=== PATIENT | male | born 1960 | race Caucasian/White ===

== ENCOUNTER 2021-01-06 09:44 | Outpatient (CLI) | payer OTHER | END 2021-01-06 09:45 | disposition home or self-care (01) | LOC: CTENTCT 09:44 | PROVIDERS: ATTEND Student in an Organized Health Care Education/Training Program | DX: J32.8 Other chronic sinusitis (principal) | CPT/HCPCS: 70486 ==

== ENCOUNTER 2022-06-16 08:19 | Day surgery (SDC) | payer OTHER ==
[2022-06-15 14:32] VITALS: BMI 42.0
[2022-06-16] MEDS ORDERED: Oxymetazoline HCl 0.05% (30 ML BOT) ONE ×2 (09:08→10:13)
[2022-06-16] MEDS ORDERED: Lidocaine 1% (PF) 30 ML VIAL ONE (10:13)
[2022-06-16] MEDS ORDERED: Bacitracin Zinc Ointment 30 gm TUBE ONE (10:13)
[2022-06-16] MEDS ORDERED: EPINEPHrine 1 MG/ML AMP ONE (10:13)
[2022-06-16] MEDS ORDERED: fentaNYL 50 mcg/mL 1 mL Vial ONE ×2 (10:18→13:46)
[2022-06-16] MEDS ORDERED: fentaNYL PF 100 MCG/2 ML SYRINGE ONE (10:18)
[2022-06-16] MEDS ORDERED: Ondansetron PF 4 MG/2 ML Vial ONE (10:31)
[2022-06-16] MEDS ORDERED: PHENYLEPHRINE-NS 100 MCG/ML 10 ML SYRINGE ONE (10:31)
[2022-06-16] MEDS ORDERED: ePHEDrine Sulfate 50 MG/10 ML VIAL ONE (10:31)
[2022-06-16] MEDS ORDERED: PROPOFOL 200 MG/20 ML VIAL ONE (10:31)
[2022-06-16] MEDS ORDERED: Lidocaine 1% PF 5 ML VIAL ONE (10:31)
[2022-06-16] MEDS ORDERED: Dexamethasone 20 MG/5 ML VIAL ONE (10:31)
[2022-06-16] MEDS ORDERED: Rocuronium Bromide 10 MG/ML (10ML VIAL) ONE (10:31)
[2022-06-16] MEDS ORDERED: SUGAMMADEX SODIUM 200 MG/2 ML VIAL ONE (11:02)
[2022-06-16] MEDS ORDERED: Phenylephrine 10 MG/ML VIAL ONE (11:02)
== END 2022-06-16 14:58 | disposition home or self-care (01) ==
LOC: SDC 08:19
PROVIDERS: ATTEND Student in an Organized Health Care Education/Training Program
PROC: 09SM0ZZ Reposition Nasal Septum, Open Approach (ICD-10-PCS; principal; 2022-06-16)
PROC: 09QK0ZZ Repair Nasal Mucosa and Soft Tissue, Open Approach (ICD-10-PCS; principal; 2022-06-16)
PROC: 09TL0ZZ Resection of Nasal Turbinate, Open Approach (ICD-10-PCS; principal; 2022-06-16)
DX: J34.2 Deviated nasal septum (principal); J34.3 Hypertrophy of nasal turbinates; M95.0 Acquired deformity of nose; I10 Essential (primary) hypertension; I44.7 Left bundle-branch block, unspecified; J45.909 Unspecified asthma, uncomplicated; N40.0 Benign prostatic hyperplasia without lower urinary tract symptoms; G43.909 Migraine, unspecified, not intractable, without status migrainosus; E66.01 Morbid (severe) obesity due to excess calories; Z68.41 Body mass index [BMI] 40.0-44.9, adult; Z87.891 Personal history of nicotine dependence; Z79.899 Other long term (current) drug therapy
CPT/HCPCS: C1889; J0171; J1100; J2001; J2370; J2405; J2704; J3010